=== PATIENT | male | born 1970 | race Caucasian/White ===

== ENCOUNTER 2023-10-12 11:00 | Emergency (ER) | payer MEDICARE, MEDICAID, SELFPAY ==
[2023-10-12 11:13] VITALS: BP 123/77; PULSE 91; RESP 18; TEMP 35.7; O2SAT 100
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
== END 2023-10-12 11:35 | disposition home or self-care (01) ==
PROVIDERS: Emergency Provider Nurse Practitioner; PCP Family Medicine
DX: T25.212A Burn of second degree of left ankle, initial encounter (principal); X08.8XXA Exposure to other specified smoke, fire and flames, initial encounter; E11.9 Type 2 diabetes mellitus without complications; E78.00 Pure hypercholesterolemia, unspecified; I10 Essential (primary) hypertension
CPT/HCPCS: 99213; G0463

== ENCOUNTER 2024-07-27 08:33 | Emergency (ER) | payer MEDICARE, SELFPAY ==
--- NOTE | 2024-07-27 08:37 | ED_ITS ---
HPI - Dental/Oral General Chief complaint: Skin/Abscess/Foreign Body Stated complaint: left side of face swollen Time Seen by Provider: 07/27/24 08:38 Source: patient Mode of arrival: ambulatory Limitations: no limitations History of Present Illness HPI Narrative: Ezequiel is a 54-year-old male patient presenting to the clinic today with complaints of left-sided facial swelling x3 days. He reports symptoms started Thursday night. He woke up this morning and his face was swollen. Has 2 small sores to the left temporal area with into the temporal area extending into the periorbital area. Sores have yellow crusting. No fever, chills, or body aches. Denies any known insect bite. No history of shingles in the past. No changes in soaps or shampoos. Denies any eye pain or visual changes. Patient has ass ociated headache. States the area aches. No radiation of pain Related Data Home Medications ?Medication ?Instructions ?Recorded ?Confirmed ?Last Taken ?Type atorvastatin 40 mg tablet mg 10/12/23 Unknown History cariprazine 3 mg capsule (Vraylar) mg 10/12/23 Unknown History dapagliflozin propanediol 10 mg mg 10/12/23 Unknown History tablet (Farxiga) esomeprazole magnesium 40 mg mg 10/12/23 Unknown History capsule,delayed release fenofibrate micronized 134 mg mg 10/12/23 Unknown History capsule insulin lispro 100 unit/mL 10/12/23 Unknown History subcutaneous solution (Humalog U-100 Insulin) lisinopril 20 tablet 10/12/23 Unknown History mg-hydrochlorothiazide 12.5 mg tablet metformin 1,000 mg tablet mg 10/12/23 Unknown History naproxen 375 mg tablet mg 10/12/23 Unknown History secukinumab 150 mg/mL subcutaneous mg subcut 10/12/23 Unknown History pen injector (Cosentyx Pen 300 mg/2 pens () trazodone 50 mg tablet mg 10/12/23 Unknown History venlafaxine 150 mg mg PO 10/12/23 Unknown History capsule,extended release 24 hr Allergies Allergy/AdvReac Type Severity Reaction Status Date / Time No Known Allergies Allergy Unverified 07/27/24 08:43 Review of Systems Review of Systems: Pertinent positives per HPI. Patient denies any fever, chills, rash,visual changes, dizziness, cough, shortness of breath, chest pain, palpitations, nausea, vomiting, diarrhea, constipation, abdominal pain, or any urinary issues. PMFSH Comments At the time of my signature, I reviewed and agree with the nursing past medical, surgical, social, and family history. There is no relevant family history pertinent to the patient complaint. Exam Narrative: General: Well-developed, well nourished, in no apparent distress Head: Normocephalic, atraumatic. Cardio: Regular rate and rhythm, s1 and s2 normal, no murmur appreciated. Resp: Clear to auscultation bilaterally, no rhonchi, rales, wheezing or rubs. Integumentary: [place], warm, and dry, two small indurated sores with yellow crusting to the left temporal area that are tender to palpation with mild erythema with redness extending to the temporal area and over the periorbital area. Course Course Emergency Course: Portions of this record may have been created with voice recognition software. Level of Care: Express Care Visit Vital Signs Vital signs: Vital Signs Temperature 36.3 C L 07/27/24 08:41 Pulse Rate 91 07/27/24 08:41 Respiratory Rate 16 07/27/24 08:41 Blood Pressure 123/82 07/27/24 08:41 Pulse Oximetry 99 07/27/24 08:41 Oxygen Delivery Room Air 07/27/24 08:41 Temperature 36.3 C L 07/27/24 08:41 Pulse Rate 91 07/27/24 08:41 Respiratory Rate 16 07/27/24 08:41 Blood Pressure 123/82 07/27/24 08:41 Pulse Oximetry 99 07/27/24 08:41 Oxygen Delivery Room Air 07/27/24 08:41 Vital signs reviewed MDM - Dental/Oral MDM Narrative Medical decision making narrative: At the time of visit patient is resting comfortably on the exam table. Patient appears to be nontoxic. Plan: I suspect patient has shingles verses bacterial skin infection. Will place the patient on clindamycin and acyclovir. Patient has follow-up appointment already scheduled for Thursday of next week. Advised to go to the ER if his symptoms worsen and he voiced understanding. Supportive measures were discussed with the patient and they voiced understanding discharge instructions and agrees to treatment plan. Return precautions reviewed Differential Diagnosis Differential diagnosis: Likely gingival abscess, dental abscess and other (Herpes zoster, bacterial skin infection, cellulitis, dermatitis) Discharge Plan Discharge Clinical Impression: Skin sore Patient Disposition: Home Condition: Stable Instructions: Antibiotic Form, Shingles (ED), Cellulitis (ED) Additional Instructions: I suspect this is a bacterial skin infection verses shingles to the left temporal area. Take clindamycin and acyclovir as prescribed Apply cool compress to the affected area to help alleviate pain and swelling May take Tylenol/Motrin as needed for pain or fever. Go to the emergency room if you develop worsening of symptoms-increase in pain, increase in swelling, increase in redness, visual changes, eye pain, fever not controlled by Tylenol Motrin, confusion, weakness, lethargy, chest pain, or shortness of breath Patient Language: Vietnamese Prescriptions: New acyclovir 800 mg tablet 800 mg PO Q4H 7 Days Qty: 42 0RF Rx Instructions: while awake; give 5 doses in 24 hours clindamycin HCl [Cleocin HCl] 300 mg capsule 300 mg PO Q8H 7 Days Qty: 21 0RF No Action atorvastatin 40 mg tablet naproxen 375 mg tablet trazodone 50 mg tablet lisinopril-hydrochlorothiazide 20-12.5 mg tablet venlafaxine 150 mg capsule,extended release 24hr PO fenofibrate micronized 134 mg capsule metformin 1,000 mg tablet esomeprazole magnesium 40 mg capsule,delayed release(DR/EC) insulin lispro [Humalog U-100 Insulin] 100 unit/mL solution dapagliflozin propanediol [Farxiga] 10 mg tablet Cosentyx Pen (2 Pens) 150 mg/mL pen injector SUBCUT Vraylar 3 mg capsule Follow-up/Referrals: UNKNOWN,DOCTOR [Primary Care Provider] - Time of Disposition: 08:50 Quality NIHSS Nursing Documentation ED NIHSS nursing documentation: reviewed/agree
[2024-07-27 08:41] VITALS: BP 123/82; PULSE 91; RESP 16; TEMP 36.3; O2SAT 99
== END 2024-07-27 08:53 | disposition home or self-care (01) ==
PROVIDERS: Emergency Provider Nurse Practitioner Family
DX: L98.9 Disorder of the skin and subcutaneous tissue, unspecified (principal); I10 Essential (primary) hypertension; E11.9 Type 2 diabetes mellitus without complications; E78.00 Pure hypercholesterolemia, unspecified
CPT/HCPCS: 99213; G0463